=== PATIENT | male | born 1995 | race Caucasian/White ===

== ENCOUNTER 2021-07-16 18:16 | Inpatient (IN) | payer OTHER, SELFPAY ==
[2021-07-16 18:25] VITALS: BP 126/85; PULSE 85; RESP 18; TEMP 36.4; O2SAT 99
[2021-07-16 22:00] VITALS: BP 126/85; PULSE 85; RESP 18; TEMP 36.4
[2021-07-16] MEDS: hyDROXYzine 25 mg Capsule 50 MG PO (22:17)
--- NOTE | 2021-07-16 22:20 | PC.NURSE ---
Vistaril 50 mg administered for anxiety.
[2021-07-17 06:00] VITALS: RESP 17
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
[2021-07-17] MEDS: ARIPiprazole 2 mg Tablet PO (08:57)
[2021-07-17] MEDS: sertraline 50 mg Tablet PO (08:57)
[2021-07-17 14:00] VITALS: BP 105/67; PULSE 115; RESP 16; TEMP 36.6; O2SAT 98
[2021-07-17] MEDS: acetaminophen 325 mg Tablet 650 MG PO (15:17)
[2021-07-17 19:42] VITALS: BP 119/72; PULSE 85; RESP 16; O2SAT 97
[2021-07-18 06:00] VITALS: BP 124/85; PULSE 85; RESP 16; TEMP 36.9; O2SAT 99
[2021-07-18] MEDS: ARIPiprazole 2 mg Tablet PO (09:16)
--- NOTE | 2021-07-18 10:47 | P.NPUPN_ITS ---
Subjective NPU Subjective: Interval history: He is feeling a little better today. He denies any suicidal ideation today. He feels like he has misbehaved so much in the marriage that it cannot be salvaged. He feels very guilty for the obsessions that he has had for other women. He talked with his sister who had good results with Lexapro. She tried Wellbutrin 1 time and it made her feel like she had the flu. He agreed to change to Lexapro. He was educated on the differences between the antidepressants. When he took the Abilify and the Zoloft together he felt like they were fighting each other with one trying to pull him up and the other sedating him. He did not sleep that well but does not want to take a sleep medication. He was educated about the things that were available for him to sleep if he should change his mind. One of the problems with his house is that they planned on putting a lot of sweat equity into the house and doing a lot of the work themselves. He has not been able to be as productive as he had hoped. He is not concerned about being able to manage the debt on the house with his income. His used to work but now she is a agpp-eb-jzyw mom. We also talked about the guilt burden that people leave behind when they commit suicide. He had not really been aware of that previously. He had a friend who drowned when they were out camping and he is always felt guilty about that but feels like he has dealt with it now. Mental Status Exam MSE Comments: This is a thin 26-year-old male who appears his stated age no acute distress. Pleasant and cooperative with the interview. He is dressed in hospital scrubs with normal psychomotor activity. Speech is at a regular rate and rhythm, normal volume, good articulation, not pressured. Alert, oriented X3 Attention and concentration is normal. Memory is intact Mood is depressed. Affect is mildly dysphoric. Thought process is logical and goal-directed. Thought content: Denies auditory and visual hallucinations. No delusions or paranoia are noted. Admits to very clear suicidal ideation but wanted to get some things done first. He denies any suicidal ideation in the last 24 hours. He denies homicidal ideation. Fund of knowledge is above average. Insight and judgment appear to be good. Impulse control is appears to be good. Cognition: Patient Appearance: Appropriate Ability to Follow Directions: Excellent Patient Orientation (long list): Person, Place, Time, Name, Age, Birthday, Day of Month, Day of Week, Month, Time of Day and Year Comprehension Ability: No Impairment Hallucination Type: None Delusion Description: Not Present Thought Process: Circumstantial Affect: Affect Description: Appropriate and Calm Behavior: Patient Behavior: Appropriate and Cooperative Speech Pattern: Appropriate and Clear Vitals/I&O/Wt Last Vital Signs Temp 98.5 F 07/18/21 06:00 Pulse 85 07/18/21 06:00 Resp 16 07/18/21 06:00 BP 124/85 07/18/21 06:00 Pulse Ox 99 07/18/21 06:00 Weight last 48 hrs Weight 65.23 kg A&P Assessment and plan (1) Depression: Status: Acute Qualifiers: Depression Type: major depressive disorder Major depression recurrence: single episode Active/Remission status: currently active Major depression episode severity: severe Psychotic features: without psychotic features Qualified Code(s): F32.2 - Major depressive disorder, single episode, severe without psychotic features (2) Suicidal ideations: Status: Acute Additional A&P Information This is a 26-year old male who presents with severe depression and 3 months of suicidal ideation worsening recently. Plan: 1. Continue on Abilify 2 mg daily. Will change Zoloft to Lexapro 10 mg daily. 2. Continue every 15 minute checks for safety. 3. Encourage individual, group and milieu therapies. 4. Encourage sober living treatment after discharge at the highest level of care to which he is willing to commit. 5. We will monitor for safety for himself in the community prior to discharge. Involuntary Hold Information 96 Hour Hold: 96 Hour Involuntary Admission: No Attestations NPU Medical Necessity Statement*: Inpatient hospitalization is medically necessary and the clinically appropriate intervention at this time. We will initiate medications and make changes as indicated. Coding Level of Care Code Acute Dental Financial Coordinator for Jackeline Husain Diagnoses Depression F32.2 Depression Type: major depressive disorder Major depression recurrence: single episode Active/Remission status: currently active Major depression episode severity: severe Psychotic features: without psychotic features Suicidal ideations R45.859
[2021-07-18 14:00] VITALS: BP 104/67; PULSE 89; RESP 17; O2SAT 97
[2021-07-18] MEDS: escitalopram 10 mg Tablet PO (16:40)
[2021-07-18 20:24] VITALS: BP 116/75; PULSE 69; RESP 18; TEMP 37; O2SAT 97
[2021-07-19 06:00] VITALS: BP 114/82; PULSE 82; RESP 15; TEMP 37; O2SAT 98
--- NOTE | 2021-07-19 08:10 | P.NPUPN_ITS ---
Subjective NPU Subjective: Interval history: He says that he is doing better. He is trying to visualize the future. He has no thoughts of wanting to not be alive. He has talked with his a couple times every day. She is coming to visit today. She has also had suicidal ideations. She is going to have an intake at [facility] tomorrow. He says that he is more optimistic about the future. He still does not know about the marriage but is going to give it a try of making it work. He did not have any difficulty with the Lexapro yesterday afternoon. He does not feel that he has any side effects from the Abilify or the Lexapro. Mental Status Exam MSE Comments: This is a thin 26-year-old male who appears his stated age no acute distress. Pleasant and cooperative with the interview. He is dressed in hospital scrubs with normal psychomotor activity. Speech is at a regular rate and rhythm, normal volume, good articulation, not pressured. Alert, oriented X3 Attention and concentration is normal. Memory is intact Mood is depressed but better. Affect is mildly dysphoric. Thought process is logical and goal-directed. Thought content: Denies auditory and visual hallucinations. No delusions or paranoia are noted. Denies any suicidal ideation in the last 48 hours. He denies any homicidal ideation. Fund of knowledge is above average. Insight and judgment appear to be good. Impulse control is appears to be good. Cognition: Patient Appearance: Appropriate Ability to Follow Directions: Excellent Patient Orientation (long list): Person, Place, Time, Name, Age, Birthday, Day of Month, Day of Week, Month, Time of Day and Year Comprehension Ability: No Impairment Hallucination Type: None Delusion Description: Not Present Thought Process: Appropriate Affect: Affect Description: Appropriate Behavior: Patient Behavior: Appropriate Speech Pattern: Appropriate Vitals/I&O/Wt Last Vital Signs Temp 98.6 F 07/19/21 06:00 Pulse 82 07/19/21 06:00 Resp 15 07/19/21 06:00 BP 114/82 07/19/21 06:00 Pulse Ox 98 07/19/21 06:00 Weight last 48 hrs Weight 65.23 kg A&P Assessment and plan (1) Depression: Status: Acute Qualifiers: Depression Type: major depressive disorder Major depression recurrence: single episode Active/Remission status: currently active Major depression episode severity: severe Psychotic features: without psychotic features Qualified Code(s): F32.2 - Major depressive disorder, single episode, severe without psychotic features (2) Suicidal ideations: Status: Acute Additional A&P Information This is a 26-year old male who presents with severe depression and 3 months of suicidal ideation worsening recently. Plan: 1. Continue on Abilify 2 mg daily. Lexapro 10 mg daily. 2. Continue every 15 minute checks for safety. 3. Encourage individual, group and milieu therapies. 4. Encourage sober living treatment after discharge at the highest level of care to which he is willing to commit. 5. We will monitor for safety for himself in the community prior to discharge. Involuntary Hold Information 96 Hour Hold: 96 Hour Involuntary Admission: No Attestations NPU Medical Necessity Statement*: Inpatient hospitalization is medically necessary and the clinically appropriate intervention at this time. We will initiate medications and make changes as indicated. Coding Level of Care Code Acute Pharmacy Clinical Coordinator for Jackeline Husain Diagnoses Depression F32.2 Depression Type: major depressive disorder Major depression recurrence: single episode Active/Remission status: currently active Major depression episode severity: severe Psychotic features: without psychotic features Suicidal ideations R45.594
[2021-07-19] MEDS: ARIPiprazole 2 mg Tablet PO (09:31)
[2021-07-19 14:00] VITALS: BP 125/80; PULSE 93; RESP 20; TEMP 36.4; O2SAT 97
[2021-07-19] MEDS: escitalopram 10 mg Tablet PO (17:06)
[2021-07-19 19:44] VITALS: BP 123/79; PULSE 81; RESP 15; TEMP 36.9; O2SAT 97
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
[2021-07-20 06:00] VITALS: BP 114/72; PULSE 112; RESP 17; TEMP 37.1; O2SAT 97
[2021-07-20 08:29] VITALS: BP 114/72; PULSE 112; RESP 17; TEMP 37.1; O2SAT 97
[2021-07-20] MEDS: ARIPiprazole 2 mg Tablet PO (08:30)
== END 2021-07-20 10:38 | disposition home or self-care (01) | DRG 885 ==
PROVIDERS: Admitting Provider Psychiatry & Neurology Psychiatry; Visit Provider Psychiatry & Neurology Psychiatry
DX: F32.2 Major depressive disorder, single episode, severe without psychotic features (principal); R45.851 Suicidal ideations; F41.9 Anxiety disorder, unspecified